=== PATIENT | male | born 1950 | race Caucasian/White ===

== ENCOUNTER 2020-10-29 08:56 | Emergency (ER) | payer MEDICARE, MEDICAID, SELFPAY ==
--- NOTE | 2020-10-29 09:10 | ED.GENADULT ---
HPI - General Adult General Chief complaint: Nausea/Vomiting/Diarrhea Stated complaint: Nausea/Chills/Loss of Appetite Time Seen by Provider: 10/29/20 09:22 Source: patient and RN notes reviewed Mode of arrival: ambulatory Limitations: no limitations History of Present Illness HPI narrative: 70-year-old male presents with complaints of body aches, diarrhea, decrease appetite, vomiting, nausea, and intermittent chills for the past 2 days. Saqib reports having 2 episodes of emesis on 10/28/2020 without blood or abdominal pain. Nausea intermittently. No treatment. No abdominal cramping. Exacerbating factors consist of eating and drinking. LBM diarrhea on 10/28/2020 stool without blood. Denies fever. Denies headache, dizziness, back pain, dysuria, and blood in stool. Tolerating po intake well. Remains active. The patient reports he have not been diagnosed with COVID-19. The patient reports he is not waiting for the results of a COVID-19 lab test. The patient reports he do not have weakness or fatigue. The patient reports he do not have a new or worsening cough or shortness of breath. Denies chest pain. The patient reports he do not have any rhinorrhea, congestion, loss of taste or smell, or sore throat. Denies recent traveling. Denies concerns for COVID-19 or exposures been home with limited outdoor exposure except for essential household needs and return home. At this time, patient is not suspected of having COVID-19. Some parts of this dictation were generated by voice recognition software and may contain typographical and/or grammatical inaccuracies. Related Data Home Medications Medication Instructions Recorded Confirmed aspirin 81 mg PO DAILY 10/29/20 11/01/20 citalopram 20 mg PO DAILY 10/29/20 11/01/20 folic acid 1 mg PO DAILY 10/29/20 11/01/20 lisinopril 40 mg PO DAILY 10/29/20 11/01/20 metformin 500 mg PO BID 10/29/20 11/01/20 methocarbamol 500 mg PO HS 10/29/20 11/01/20 omeprazole 20 mg PO DAILY 10/29/20 11/01/20 amlodipine 2.5 mg PO DAILY 11/01/20 11/01/20 atorvastatin 40 mg PO DAILY 11/01/20 11/01/20 cholecalciferol (vitamin D3) 25 mcg PO DAILY 11/01/20 11/01/20 [Vitamin D3] clonidine HCl 0.2 mg PO TID 11/01/20 11/01/20 furosemide 20 mg PO DAILY 11/01/20 11/01/20 gabapentin 300 mg PO HS 11/01/20 11/01/20 metoprolol tartrate 25 mg PO BID 11/01/20 11/01/20 olanzapine 5 mg PO DAILY 11/01/20 11/01/20 tamsulosin 0.4 mg PO DAILY 11/01/20 11/01/20 tramadol 50 mg PO BID PRN 11/01/20 11/01/20 Allergies Allergy/AdvReac Type Severity Reaction Status Date / Time No Known Allergies Allergy Verified 11/01/20 19:06 Review of Systems Review of Systems: Narrative: CONSTITUTIONAL: Denies fever, sweats. Complains of body aches, intermittent chills. EYES: Denies visual changes, redness, discharge. ENT: Denies rhinorrhea, congestion, sore throat, otalgia. CARDIOVASCULAR: Denies chest pain, palpitations, edema. RESPIRATORY: Denies dyspnea, wheezing, cough. GASTROINTESTINAL: Denies abdominal pain, vomiting. Complains of diarrhea, nausea, and decrease appetite. GENITOURINARY: Denies dysuria, hematuria, abnormal discharge. SKIN: Denies rash or itching. MUSCULOSKELETAL: Denies acute back pain, joint pain, or myalgia. NEUROLOGIC: Denies numbness or focal weakness. PSYCHIATRIC: Denies anxiety or depression. All systems reviewed & are unremarkable except as noted in HPI and below. [facility] Past Medical History Medical History Benign prostatic hyperplasia Carotid arterial disease Status post left carotid endarterectomy. Chronic obstructive pulmonary disease Coronary artery disease (~09/2009) History of non STEMI and stent to circumflex. Dyslipidemia Gastroesophageal reflux disease Hypertension Non-STEMI (non-ST elevated myocardial infarction) (~09/2009) Status post stent to the mid circumflex. Schizophrenia Type 2 diabetes mellitus Surgical History Surgical Histo
[2020-10-29 09:20] VITALS: BP 144/81; PULSE 85; RESP 18; TEMP 36.8; O2SAT 98
[2020-10-29] MEDS: ONDANSETRON HCL ODT 4 MG TABLET PO (09:56)
== END 2020-10-29 10:05 | disposition home or self-care (01) ==
PROVIDERS: Emergency Provider Nurse Practitioner Family
DX: K52.9 Noninfective gastroenteritis and colitis, unspecified (principal); Z20.822 Contact with and (suspected) exposure to COVID-19; J44.9 Chronic obstructive pulmonary disease, unspecified; I25.10 Atherosclerotic heart disease of native coronary artery without angina pectoris; E11.9 Type 2 diabetes mellitus without complications; E78.00 Pure hypercholesterolemia, unspecified; I10 Essential (primary) hypertension; I25.2 Old myocardial infarction
CPT/HCPCS: 87426; 87804; 99213; A9270; C9803; G0463

== ENCOUNTER 2020-11-01 12:18 | Inpatient (IN) | payer MEDICARE, MEDICAID, SELFPAY ==
[2020-11-01] VITALS (12 sets, daily range): BP systolic 79–158; BP diastolic 67–89; PULSE 77–93; RESP 16–20; TEMP 36.2–37.1; O2SAT 92–100; BMI 25.2
--- NOTE | ~2020-11-01 | US_ITS ---
EXAMINATION: US retroperitoneal limited DATE: 11/02/2020 13:39 INDICATION: Renal failure TECHNIQUE: Multiple grayscale and Doppler ultrasound images of the kidneys were obtained. COMPARISON: CT, 01/18/2018 FINDINGS: The right kidney measures 12.1 x 4.8 x 7.7 cm. There is a 9 mm x 7 mm hypoechoic lesion in the right mid kidney. The left kidney measures 11.9 x 5.7 x 6.3 cm. The kidneys demonstrate normal pa renchymal echogenicity. There is no hydronephrosis. The bladder is normal. IMPRESSION: 1. No sonographic correlate for the patient's symptoms. 2. 9 mm hypoechoic lesion of the right mid kidney. Recommend follow-up CT or MRI without and with con trast in six months. Reviewed, dictated and finalized at location A. CH ENGINEER IMPRESSION: 1. No sonographic correlate for the patient's symptoms. 2. 9 mm hypoechoic lesion of the right mid kidney. Recommend follow-up CT or MR I without and with contrast in six months.
--- NOTE | ~2020-11-01 | XR_ITS ---
EXAMINATION: XR chest 1V portable DATE: 11/01/2020 14:17 INDICATION: Acute chest pain. TECHNIQUE: A single frontal view of the chest was obtained on 2 radiographs. COMPARISON: Chest 2 views 11/05/2016 FINDINGS: There are interstitial and patchy airspace opacities in all lung zones bilaterally. No pleu ral effusion or pneumothorax. The heart size is normal. IMPRESSION: 1. Diffuse lung disease, consistent with pneumonia (especially COVID-19 pneumonia) versus pulmonary e mitchel. Reviewed, dictated and finalized at location A. TRICAL MACHINIST IMPRESSION: 1. Diffuse lung disease, consistent with pneumonia (especially COVID-19 pneumon ia) versus pulmonary edema.
--- NOTE | ~2020-11-01 | CT_ITS ---
EXAMINATION: CT brain wo con EXAM DATE: 11/01/2020 12:48 INDICATION: Weakness. Infarct. TECHNIQUE: Spiral CT of the head was performed without contrast. Axial, coronal and sagittal images were reviewed. The dose-length product (DLP) for this examination was 681.00 mGy-cm. The exposure w as tailored according to patient size, and iterative reconstruction (ASIR) was used as additional dos e reduction technique. There is no prior study for comparison. FINDINGS: There is age indeterminate punctate right thalamic infarction. Small to moderate-sized righ t cerebellar infarction, most likely chronic. There is punctate old left caudate infarction. Mild jean roangiopathy and cerebral atrophy. No obstructive hydrocephalus, acute intracranial hemorrhage, mass or extra-axial collections. Probable left vertex scalp contusion. IMPRESSION: 1. Age-indeterminate right thalamic infarction. 2. 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 3. Mild age-related findings. 4. Probable left vertex scalp contusion. Reviewed, dictated and finalized at location A. RIAL HANDLER 1ST SHIFT
--- NOTE | ~2020-11-01 | US_ITS ---
EXAMINATION: US carotid duplex BI EXAM DATE: 11/02/2020 13:39 INDICATION: Stroke on CT, hx CEA cva and renal failure. TECHNIQUE: Grayscale, color and pulsed Doppler images of the cervical carotid arteries were obtained . The degree of vessel stenosis is placed in one of the following categories: normal, <50% stenosis, 50-69% stenosis, >=70% stenosis but less than near-occlusion, near-occlusion, or occlusion. Note that percent stenosis relative to normal distal artery lumen diameter is indirectly measured from velocit y measurements as described by Andre, et al. Radiology 2003; 229:340-346. There is no prior study fo r comparison. FINDINGS: RIGHT SIDE: Right common carotid artery peak systolic velocity (PSV in cm/s): 80 Right bulb/internal carotid artery peak systolic velocity (PSV in cm/s): 88 Right internal carotid artery end diastolic velocity (EDV in cm/s): 30 Right ICA/CCA peak systolic ratio: 1.1 Right external carotid artery peak systolic velocity (PSV in cm/s): 56 Right vertebral artery antegrade flow: yes There is mild scattered carotid plaque. Velocity and Doppler waveforms in the common and internal carotid arteries is normal. LEFT SIDE: Left common carotid artery peak systolic velocity (PSV in cm/s): Occluded Left bulb/internal carotid artery peak systolic velocity (PSV in cm/s): Occluded Left vertebral artery antegrade flow: yes IMPRESSION: 1. Less than 50 percent stenosis in the right internal carotid artery. 2. Occluded left internal carotid artery. > Reviewed, dictated and finalized at location A. SKIVER
--- NOTE | ~2020-11-01 | CT_ITS ---
EXAMINATION: CTA chest PE protocol EXAM DATE: 11/01/2020 15:49 INDICATION: Midsternal chest pain, acute onset. Low blood pressure. Weight loss and weakness. TECHNIQUE: Spiral CTA of the chest (pulmonary arteries) was performed with 100 cc Omnipaque 350 intr avenous contrast injection. Images were acquired during the pulmonary arterial phase. Coronal maxi mum intensity projection 3D-reconstructions were created by the technologist on dedicated workstation . Axial, coronal and sagittal reformatted images were reviewed. The dose-length product (DLP) for t his examination was 736.78 mGy-cm. The exposure was tailored according to patient size (auto mA exp osure control), and iterative reconstruction (ASIR) was used as additional dose reduction technique. Correlation is made to chest x-ray earlier same day. FINDINGS: Pulmonary arteries are well opacified and without intraluminal filling defects. No thora cic aortic dissection. Moderate amount of bilateral groundglass airspace disease, right side slightl y more involved. Most likely acute infectious process, less likely edema. This is superimposed on mod erate emphysema. No confluent consolidation. There are no pleural or pericardial effusions. Trache obronchial tree is patent. Mildly enlarged mediastinal lymph nodes likely reactive. There is no pn eumothorax. Heart normal in size. There is mild to moderate coronary arterial calcification, evie rial sclerosis. Upper abdomen is unremarkable. There is moderate thoracic spondylosis without oste oblastic or osteolytic lesions identified. IMPRESSION: 1. Moderate amount of groundglass airspace disease likely acute infection, less likely edema or chrome polisher ion process. 2. Mild mediastinal lymphadenopathy likely reactive. 3. Moderate emphysema. 4. No pulmonary emboli. Reviewed, dictated and finalized at location A. ONNEL GENERALIST MANAGER IMPRESSION: 1. Moderate amount of groundglass airspace disease likely acute infection, les s likely edema or chronic process. 2. Mild mediastinal lymphadenopathy likely reactive. 3. Moderate emphysema. 4. No pulmonary emboli.
--- NOTE | 2020-11-01 12:36 | ED.WEAKNESS ---
HPI - Weakness General Chief complaint: Weakness Stated complaint: low blood pressure, dizzy, weakness Time Seen by Provider: 11/01/20 12:26 Source: patient Mode of arrival: ambulatory Limitations: no limitations History of Present Illness HPI Narrative: Patient is a 70-year-old male brought in due to generalized weakness and low blood pressure. Patient states that he is on 5 blood pressure medications, his blood pressure over the past week has been running in the 80s over 40s to 90s over 60s. Patient states that he had chest discomfort, brief, which she states only lasted for minutes and now resolved. Patient denies any speech or visual disturbance, focal weakness or numbness, shortness of breath, abdominal pain, nausea, vomiting, diarrhea, fever or chills. Patient does admit to nausea vomiting a few days ago but only lasted for a day and has since been resolved. Related Data Home Medications Medication Instructions Recorded Confirmed aripiprazole 30 mg PO DAILY 10/29/20 10/29/20 aspirin 81 mg PO DAILY 10/29/20 10/29/20 atorvastatin 80 mg PO DAILY 10/29/20 10/29/20 benztropine 1 mg PO DAILY 10/29/20 10/29/20 cefadroxil 500 mg PO BID 10/29/20 10/29/20 citalopram 20 mg PO DAILY 10/29/20 10/29/20 folic acid 1 mg PO DAILY 10/29/20 10/29/20 lisinopril 40 mg PO DAILY 10/29/20 10/29/20 metformin 500 mg PO BID 10/29/20 10/29/20 methocarbamol 500 mg PO HS 10/29/20 10/29/20 metoprolol tartrate 50 mg PO Q12H 10/29/20 10/29/20 omeprazole 20 mg PO BID 10/29/20 10/29/20 ranitidine HCl 150 mg PO DAILY 10/29/20 10/29/20 amlodipine 2.5 mg PO DAILY 11/01/20 11/01/20 clonidine HCl 0.2 mg PO TID 11/01/20 11/01/20 furosemide 20 mg PO DAILY 11/01/20 11/01/20 gabapentin 300 mg PO HS 11/01/20 11/01/20 olanzapine 5 mg PO DAILY 11/01/20 11/01/20 tamsulosin 0.4 mg PO DAILY 11/01/20 11/01/20 tramadol 50 mg PO BID PRN 11/01/20 11/01/20 Allergies Allergy/AdvReac Type Severity Reaction Status Date / Time No Known Allergies Allergy Verified 11/01/20 12:36 Review of Systems Review of Systems: All systems reviewed & are unremarkable except as noted in HPI and below Constitutional: Constitutional: Denies body ache(s), Denies chills, Denies excessive sweating, Denies fatigue, Denies fever(s), Denies headache(s), Denies lethargy, Denies malaise and Denies weight loss Eyes: Eyes: Denies blurry vision, Denies change in vision and Denies loss of vision ENT: Denies dizziness, Denies ear discharge, Denies headache(s), Denies lip swelling, Denies epistaxis, Denies nasal congestion, Denies neck pain, Denies throat swelling and Denies tongue swelling Cardiovascular: Cardiovascular: Denies chest pain, Denies chest pain at rest, Denies chest pain with activity, Denies diaphoresis, Denies rapid heart rate, Denies edema, Denies irregular heart rhythm, Denies lightheadedness, Denies palpitations, Denies dyspnea and Denies dyspnea on exertion Respiratory: Respiratory: Denies chest congestion, Denies cough, Denies hemoptysis, Denies dyspnea and Denies dyspnea on exertion Gastrointestinal: Gastrointestinal: Denies abdominal pain, Denies melena, Denies hematochezia, Denies diarrhea, Denies nausea, Denies vomiting and Denies hematemesis Musculoskeletal: Musculoskeletal: Denies abnormal gait, Denies deformity, Denies joint swelling, Denies limited range of motion, Denies neck pain and Denies numbness Neurologic: Denies Abnormal speech present, Denies abnormal gait, Denies confusion, Denies dizziness, Denies headache(s), Denies focal weakness, Denies loss of vision, Denies numbness, Denies Other visual disturbances and Denies Sensory deficit (Neuro) Psychiatric: Psychiatric: Denies confusion, Denies depression, Denies auditory hallucinations, Denies homicidal ideation and Denies suicidal ideation Endocrine: Endocrine: Denies cold intolerance, Denies excessive sweating, Denies fatigue, Denies heat intolerance and Denies palpitations Hematologic/Lymphatic: Hematologic/Lymphatic: D
[2020-11-01] MEDS: LACTATED RINGERS 1,000 ML 999 ML IV CONT (13:10)
[2020-11-01 13:17] LABS: Glucose Point of Care 134 (65-105)
[2020-11-01 13:19] LABS: Basophils Percent Auto 0.1 % (0.2-1.2); Eosinophils Percent Auto 0.1 % (0-4.4); Hematocrit 41.7 % (42.0-52.0); Immature Granulocyte Absolute 0.07 K/mm3 (0.00-0.031); Immature Granulocyte Percent A 0.5 % (0-0.5); Lymphocytes Absolute Auto 0.81 K/mm3 (0.9-3.2); Lymphocytes Percent Auto 5.2 % (18.3-44.2); Mean Corpuscular Hemoglobin 31.1 pg (26-34); Mean Corpuscular Volume 86.3 fl (80-100); Monocytes Absolute Auto 0.8 K/mm3 (0.1-0.6); Monocytes Percent Auto 5.3 % (2.6-8.5); Neutrophils Absolute Auto 13.7 K/mm3 (1.3-6.7); Neutrophils Percent Auto 88.8 % (45.5-73.1); Platelet Count Result 229 k/mm3 (150-375); Red Blood Count 4.83 M/mm3 (4.6-6.20); White Blood Count 15.5 K/mm3 (4.5-10.0)
[2020-11-01 13:30] LABS: Lactic Acid Reflex 1.9 mmol/L (0.7-2.1)
[2020-11-01 13:36] LABS: Alanine Aminotransferase 11 U/L (4-50); Albumin Level 3.5 g/dL (3.5-5.1); Alkaline Phosphatase 89 U/L (38-126); Anion Gap 4 mmol/L (8-16); Aspartate Amino Transferase 22 U/L (17-59); Bilirubin,Total 0.8 mg/dL (0.2-1.3); Blood Urea Nitrogen 15 mg/dL (9-20); Calcium 8.8 mg/dL (8.4-10.2); Carbon Dioxide 27 mmol/L (22-30); Chloride 82 mmol/L (98-107); Estimated CRCL calculation 54 ml/min; Estimated Glomerular Filt Rate 60; Glucose 127 mg/dL (75-110); Potassium 4.2 mmol/L (3.4-5.0); Sodium 113 mmol/L (137-145)
[2020-11-01 13:38] LABS: Partial Thromboplastin Time 33.3 SECONDS (22.3-36.8)
[2020-11-01 13:38] LABS: Add Urine Microscopic? NO; Appearance Urine Clear (Clear); Bilirubin Urine Negative (Negative); Blood Urine Negative (Negative); Color Urine Straw (Yellow); Glucose Urine UA Negative (Negative); Ketones Urine Negative (Negative); Leukocyte Esterase Ur Negative LEU/UL (Negative); Nitrate Urine Negative (Negative); Protein Urine Negative (Negative); RBC Urine 0-2 /hpf (0-2); Specific Grav Ur 1.006 (1.001-1.035); Urobilinogen Urine Negative mg/dL (<2.0); WBC Urine 0-3 /hpf
[2020-11-01 13:39] LABS: Prothrombin Time 14.2 Seconds (11.1-14.7)
[2020-11-01 13:48] LABS: Troponin I 0.125 ng/mL (0.000-0.034)
--- NOTE | 2020-11-01 14:19 | ECG_ITS ---
Measurements Intervals [place] Rate: 81 P: 73 RI: 180 QRS: 49 QRSD: 94 T: 78 QT: 344 QTc: 401 Interpretive Statements SINUS RHYTHM ATRIAL PREMATURE COMPLEX BORDERLINE R WAVE PROGRESSION, ANTERIOR LEADS ST ELEVATION IN ANTEROLATERAL LEADS- CONSIDER INJURY, PERICARDITIS, OR EARLY REPOLARIZATION BASELINE ARTIFACT- I, III, AVR, AVL, AVF, V2 ABNORMAL ECG Electronically Signed On 11-01-2020 16:25:38 STEREOPTICIAN by Zackery Terrell D.O.
[2020-11-01] MEDS: ASPIRIN 81 MG CHEWABLE TABLET 324 MG PO (14:41)
[2020-11-01] MEDS: ENOXAPARIN 100 MG/ML SYRINGE 90 MG SUB-Q (15:04)
--- NOTE | 2020-11-01 15:19 | PM.CNCAR ---
Assessment and Plan Additional Plan 70-year-old man with: Abnormal looking EKG and modestly elevated troponin but with no clinical evidence or symptoms to suggest an acute coronary syndrome is going on. He is in the emergency room principally because of concerns regarding problematic/symptomatic hypotension. His antihypertensive regimen includes amlodipine, clonidine, metoprolol and lisinopril. It is likely some of his medications need to be reduced and or withdrawn. At this point I do not believe Mr. lanette diaz needs to be brought emergently to the cardiac solder making laborer for an angiogram based on no clinical complaints that would suggest an acute FL is going on. We will follow him with you while he is in the hospital but at this point I will defer to the primary team regarding adjusting his blood pressure medications. Edgar Bello MD [facility] History of Present Illness History of Present Illness Consult date/time: 11/01/20 15:20 Consult reason: hypotension Reason For Visit: low blood pressure, dizzy, weakness Narrative: This is a 70-year-old man I am seeing in the emergency room at the [facility] of the ED staff because they were concerned about the possibility of a ST-elevation FL. The patient is in the emergency room brought in by his sister who apparently is his power of deputy county attorney as well because of concerns regarding weakness unsteadiness of his gait concerned that he might fall because of problematic/symptomatic hypotension. This is a gentleman who apparently gets his medical care at the [facility] and she has been concerned that his systolic blood pressure at times is in the 80s he lives alone is at home home and is having difficulty being lightheaded when he stands up and tries to ambulate in the home and this has been attributed to hypotension. She states that the she brought him to an urgent care center and had him evaluated earlier this week with no adjustments being made in his medication. He normally gets his [facility] care at the [facility] but for some reason they are not taking him back to the [facility] for evaluation of this. In the emergency department the patient's electrocardiogram shows some elevation of the ST segments in the precordial leads there is no reciprocal depression. The patient states that he is not experiencing any chest pain recently that he can recall. A troponin level was done that is elevated at 0.1 and for this reason the ER doctor was concerned that there might be an ST-elevation FL going on. Once again he is not having any symptoms or complaints that would suggest this. According to the sister he does have a history of coronary disease having had a coronary stent procedure done here at [facility] about 10 years ago. He has not been followed by Cardiology at all since that procedure for reasons that are not clear. He does follow-up with a primary care physician as well as a psychiatrist at the [facility]. According to his sister his other ongoing medical problems include longstanding hypertension chronic lung disease with ongoing cigarette smoking and a history of schizophrenia. The patient is relatively comfortable in the emergency room at this time he just finished urinating he is sitting at the bedside and the ER cart and offers no other complaints again on repeated questioning he is not having any chest pain. Review of Systems Constitutional: Constitutional: Reports lethargy Eyes: Eyes: Reports no additional eye complaints ENT: Reports system reviewed and no additional complaints, except as documented Cardiovascular: Cardiovascular: Reports no additional cardiovascular complaints Respiratory: Respiratory: Reports wheezing Gastrointestinal: Gastrointestinal: Reports no additional gastrointestinal complaints Musculoskeletal: Musculoskeletal: Reports no additional musculoskeletal complaints Integumentary/Breasts: Skin/Breast: Reports system reviewed and no additional complaints, except as docu Neurolo
--- NOTE | 2020-11-01 17:00 | PM.IMHP ---
H&P: HPI History of Present Illness Date/Time: 11/01/20 17:00 Chief Complaint: Weakness and low blood pressure. Narrative: This is a 70-year-old male with coronary artery disease status post stent to the mid circumflex in 2009, type 2 diabetes mellitus, hypertension, hyperlipidemia, COPD, and schizophrenia who presented to the emergency department earlier today via private vehicle from home for evaluation of weakness and low blood pressures. He has a fair historian but is somewhat vague regarding what ails him but from what I can gather he has not felt well for about 5 days with symptoms to include generalized malaise, weakness, body aches, decreased appetite, nausea, vomiting, loose stools, chills, and lightheadedness upon standing. He also reports losing 30 pounds unintentionally although his sister feels it is more like 60 pounds. He was seen at [facility] on 10/29/2020 and was diagnosed with gastroenteritis, testing negative for both COVID-19 and influenza. Vomiting and loose stools have since abated however he continues to have nausea with a poor appetite and lightheadedness. He has been monitoring his blood pressures daily and notes they have been running between 80/40 and 90/60 which is quite a bit lower than his baseline. In fact he an appointment with his doctor at the [place] today but did not wish to be transferred to the [place] and came to [place] instead. In any regard, he was noted to be coughing frequently while I was in the room and he goes on to admit that he has a chronic smoker's cough which is a bit occasionally productive of clear phlegm, and this has been unchanged. Chest x-ray does show findings of bilateral pneumonia, however. Additionally he was found to have profound hyponatremia with a sodium of 113; no other labs are in the chart for comparison unfortunately. He drinks maybe 3 bottled peraza a day in addition to a 6 pack of diet Pepsi, may be a bit less than that since he has not been feeling well. He has not been eating much due to ongoing nausea. No confusion or abdominal pain. Urine output has been unremarkable. No new medications or change in dosing. No history of malignancy or thyroid disease. He has not had a documented fever. No sinus congestion, otalgia, or odynophagia. He denies significant shortness of breath and chest pain. Review of Systems Review of Systems: Narrative: Twelve systems were reviewed with pertinent positives and negatives as per HPI. Patient reports generalized weakness and denies focal weakness however he seems weak in the left upper extremity but he says he has a difficult time lifting that arm due to pain in the shoulder. He has not injured himself but has had increasing problems with shoulder pain recently, maybe in the last month or so. He denies vertigo, auditory and visual changes, and paresthesias. No chest pain, pleuritic pain, or palpitations. Denies dysuria and hematuria. No dysphagia or concerns for aspiration. Except as documented, all other systems were reviewed and are negative. [facility] Past Medical History Medical History Benign prostatic hyperplasia Carotid arterial disease Status post left carotid endarterectomy. Chronic obstructive pulmonary disease Coronary artery disease (~09/2009) History of non STEMI and stent to circumflex. Dyslipidemia Gastroesophageal reflux disease Hypertension Non-STEMI (non-ST elevated myocardial infarction) (~09/2009) Status post stent to the mid circumflex. Schizophrenia Type 2 diabetes mellitus Surgical History Surgical History History of cardiac catheterization (~09/2009) Status post stent in the mid circumflex. History of left-sided carotid endarterectomy (~03/2000) Family History Family History Other Unknown family medical history Social History Social Histor
[2020-11-01 17:07] LABS: Troponin I 0.139 ng/mL (0.000-0.034)
[2020-11-01 17:47] LABS: Anion Gap 6 mmol/L (8-16); Blood Urea Nitrogen 14 mg/dL (9-20); Calcium 9.1 mg/dL (8.4-10.2); Carbon Dioxide 27 mmol/L (22-30); Chloride 82 mmol/L (98-107); Estimated CRCL calculation 65 ml/min; Estimated Glomerular Filt Rate > 60; Glucose 131 mg/dL (75-110); Potassium 4.1 mmol/L (3.4-5.0); Sodium 115 mmol/L (137-145)
[2020-11-01 18:00] LABS: CRP 13.8 mg/dL (<1.0)
[2020-11-01 18:07] LABS: Lactate Dehydrogenase < 200 U/L (313-618)
[2020-11-01 18:09] LABS: Glucose Point of Care 155 (65-105)
[2020-11-01] MEDS: SODIUM CHLORIDE 0.9% IV 1,000 ML 75 ML IV CONT (18:46)
--- NOTE | 2020-11-01 18:51 | ADMGEN ---
This patient, Saqib Alaniz, was admitted to IMU Room 209-01. Patient/family oriented to hospital policies and general routines including ID bracelet, bed and alarms, visiting hours, pain management, procedures, bathroom and other care routines, personal items, smoking policy, room service/diet, and visiting hours. Information on how to activate the Rapid Response Team has been discussed. Patient/Family are encouraged to report perceived risks to care and to ask questions if they do not understand what they are told or what they should do.
[2020-11-01 20:03] LABS: Sodium 119 mmol/L (137-145)
[2020-11-01 20:21] LABS: Troponin I 0.134 ng/mL (0.000-0.034)
[2020-11-01 20:58] LABS: Sodium Urine Random 21 meq/L
[2020-11-01 21:00] LABS: Creatinine Urine 15.9 mg/dL
[2020-11-01 21:29] LABS: Glucose Point of Care 194 (65-105)
--- NOTE | 2020-11-01 21:32 | PM.CNNEP ---
Assessment and Plan Assessment and plan (1) Hyponatremia: Code(s): E87.1 - Hypo-osmolality and hyponatremia Status: Acute Assessment and Plan: Saqib has hyponatremia. The patient looks like he could be a little bit dehydrated. The patient is also on multiple medicines that could lead to dehydration as well including Lasix and the citalopram. I am assuming he took his medications this morning before he came in so I would not think that withdrawal of the medicines would be making him correct too quickly at this point. The patient also is not eating very well for the last couple of weeks and so could have an mild form of beer drinkers potomania, drinking lots of fluid but not eating very many osmoles thus reducing his free water excretory ability such that he is able to easily overwhelm his kidneys'capability of clearing the free water he drinks. This would explain his high urine output right now and his rapid correction of sodium since he is not drinking very much fluid right now. The patient could have other issues as well. He does have COPD which could bring about SIADH. He could have some underlying cancer because he is a smoker. This may be a combination of SIADH and beer drinkers potomania. His sodium corrected by 6 within about 6 hours. He is at risk of over-correction. So at this point I am going given some DDAVP. Will stop his IV fluids. I will encourage him to go eat and drink water and follow the sodium closely overnight. If it still corrects to quickly we can give him some D5W. [facility] get serum and urine osmolality, TSH and cortisol levels, and a serum protein electrophoresis. (2) Pneumonia: Qualifiers: Laterality: unspecified laterality Lung location: unspecified part of lung Pneumonia type: due to unspecified organism Qualified Code(s): J18.9 - Pneumonia, unspecified organism Code(s): J18.9 - Pneumonia, unspecified organism Status: Acute Assessment and Plan: The patient has pneumonia on his chest x-ray. Possibly this is why he sick. He is getting antibiotics. (3) COVID-19 ruled out by laboratory testing: Code(s): Z20.822 - Contact with and (suspected) exposure to COVID-19 Status: Acute Assessment and Plan: He is tested for COVID because of the pneumonia. He is on isolation (4) Hypertension: Code(s): I10 - Essential (primary) hypertension Status: Acute Assessment and Plan: His blood pressure is under good control (5) Type 2 diabetes mellitus: Code(s): E11.9 - Type 2 diabetes mellitus without complications Status: Chronic Assessment and Plan: He is on Accu-Cheks and sliding-scale insulin History of Present Illness Reason for Consult Consult date: 11/01/20 Chief Complaint Chief complaint: Nstemi, Pneumonia, Hyponatremia History of Present Illness Narrative: Saqib is a very pleasant 70-year-old gentleman who has multiple medical problems including COPD, coronary artery disease status post myocardial infarction, hypertension, diabetes, hyperlipidemia, schizophrenia. The patient says he has been sick for a couple of weeks with occasional nausea and vomiting and also occasional diarrhea. He has not been eating very well the last couple of weeks. Says he drinks fluid. About 3 bottles of water and about 6 cans of 7 up per day. He has continued this fluid intake and spite of not eating very much. He does not drink alcohol. He says he takes Advil a couple times per day. He does not take any other pain medicine. He does take furosemide. He is also on psychiatric agents such as citalopram, and olanzapine. He has most of his care at the [facility]. He saw about a week ago who lucinda some blood work and told him that his sodium was low but did not give him any advice to correct it. Looking further back in the record, during hospital stay here in 2009 he did have a mildly low sodium for couple of days but i
[2020-11-01] MEDS: DESMOPRESSIN ACETATE 4 MCG/ML AMP 2 MCG IV PUSH (22:27)
[2020-11-01 23:02] LABS: Sodium 119 mmol/L (137-145)
[2020-11-02] VITALS (16 sets, daily range): BP systolic 113–168; BP diastolic 62–96; PULSE 71–107; RESP 15–18; TEMP 36.1–36.8; O2SAT 93–100
[2020-11-02] MEDS: METOPROLOL TARTRATE 25 MG TABLET PO ×3 (00:10→21:50)
[2020-11-02] MEDS: cloNIDine HCL 0.2 MG TABLET PO ×4 (00:10→17:52)
[2020-11-02] MEDS: methocarbamoL 500 MG TABLET PO ×2 (00:10→21:51)
[2020-11-02] MEDS: GABAPENTIN 300 MG CAPSULE PO ×2 (00:10→21:51)
[2020-11-02] MEDS: traMADol HCL (*CRX) 50 MG TABLET PO (01:22)
[2020-11-02 04:04] LABS: Sodium 120 mmol/L (137-145)
[2020-11-02] MEDS: NICOTINE (*PBKC) 21 MG PATCH 1 PATCH TRANSDERM (04:27)
[2020-11-02 05:05] LABS: Creatinine Urine 56.1 mg/dL; Total Protein Urine Random 49 mg/dL; Ur Ttl Prot Creatinine Ratio 0.87 mg/mg (0-0.20)
[2020-11-02 05:07] LABS: Sodium Urine Random 87 meq/L
[2020-11-02 08:27] LABS: SARS-CoV-2 RNA PCR Negative
[2020-11-02] MEDS: FOLIC ACID 1 MG TABLET PO (08:38)
[2020-11-02] MEDS: ATORVASTATIN 40 MG TABLET PO (08:38)
[2020-11-02] MEDS: ASPIRIN 81 MG ENTERIC TABLET PO (08:38)
[2020-11-02] MEDS: CHOLECALCIFEROL 1,000 UNITS TABLET 1000 UNITS PO (08:39)
[2020-11-02] MEDS: PANTOPRAZOLE SOD SESQUIHYDRATE 20 MG TAB PO (08:39)
[2020-11-02] MEDS: amLODIPine BESYLATE 2.5 MG TABLET PO (08:39)
[2020-11-02] MEDS: TAMSULOSIN HCL 0.4 MG CAPSULE PO (08:39)
[2020-11-02 08:40] LABS: Sodium 119 mmol/L (137-145)
[2020-11-02 09:19] LABS: Glucose Point of Care 129 (65-105)
--- NOTE | 2020-11-02 09:39 | PM.IMPN ---
Progress Note: A&P Assessment and Plan (1) Hypertension: Code(s): I10 - Essential (primary) hypertension Status: Acute (2) Type 2 diabetes mellitus: Code(s): E11.9 - Type 2 diabetes mellitus without complications Status: Chronic (3) Generalized weakness: Code(s): R53.1 - Weakness Status: Acute (4) Abnormal brain CT: Code(s): R90.89 - Other abnormal findings on diagnostic imaging of central nervous system Status: Acute (5) Elevated troponin: Code(s): R77.8 - Other specified abnormalities of plasma proteins Status: Acute (6) Hyponatremia: Code(s): E87.1 - Hypo-osmolality and hyponatremia Status: Acute (7) Bilateral pneumonia: Code(s): J18.9 - Pneumonia, unspecified organism Status: Acute (8) Non-ST elevation (NSTEMI) myocardial infarction: Code(s): I21.4 - Non-ST elevation (NSTEMI) myocardial infarction Status: Acute (9) Acute hyponatremia: Code(s): E87.1 - Hypo-osmolality and hyponatremia Status: Acute (10) Acute hypotension: Code(s): I95.9 - Hypotension, unspecified Status: Acute (11) Pneumonia: Qualifiers: Laterality: unspecified laterality Lung location: unspecified part of lung Pneumonia type: due to unspecified organism Qualified Code(s): J18.9 - Pneumonia, unspecified organism Code(s): J18.9 - Pneumonia, unspecified organism Status: Acute (12) COVID-19 ruled out by laboratory testing: Code(s): Z20.822 - Contact with and (suspected) exposure to COVID-19 Status: Acute Additional Plan HPI: This is a 70-year-old male with coronary artery disease status post stent to the mid circumflex in 2009, type 2 diabetes mellitus, hypertension, hyperlipidemia, COPD, and schizophrenia who presented to the emergency department earlier today via private vehicle from home for evaluation of weakness and low blood pressures. He has a fair historian but is somewhat vague regarding what ails him but from what I can gather he has not felt well for about 5 days with symptoms to include generalized malaise, weakness, body aches, decreased appetite, nausea, vomiting, loose stools, chills, and lightheadedness upon standing. He also reports losing 30 pounds unintentionally although his sister feels it is more like 60 pounds. He was seen at [facility] on 10/29/2020 and was diagnosed with gastroenteritis, testing negative for both COVID-19 and influenza. Vomiting and loose stools have since abated however he continues to have nausea with a poor appetite and lightheadedness. He has been monitoring his blood pressures daily and notes they have been running between 80/40 and 90/60 which is quite a bit lower than his baseline. In fact he an appointment with his doctor [facility] the [facility] today but did not wish to be transferred to the [facility] and came to [place] instead. In any regard, he was noted to be coughing frequently while I was in the room and he goes on to admit that he has a chronic smoker's cough which is a bit occasionally productive of clear phlegm, and this has been unchanged. Chest x-ray does show findings of bilateral pneumonia, however. Additionally he was found to have profound hyponatremia with a sodium of 113; no other labs are in the chart for comparison unfortunately. He drinks maybe 3 bottled peraza a day in addition to a 6 pack of diet Pepsi, may be a bit less than that since he has not been feeling well. He has not been eating much due to ongoing nausea. No confusion or abdominal pain. Urine output has been unremarkable. No new medications or change in dosing. No history of malignancy or thyroid disease. He has not had a documented fever. No sinus congestion, otalgia, or odynophagia. He denies significant shortness of breath and chest pain. A/P # multifocal pneuomonia: COVID negative. treated as CAP with ceftraixone and azithromycin. sputum culture. legionella negative. pneucoccus pe
[2020-11-02 10:29] LABS: Hematocrit 41.3 % (42.0-52.0); Hemoglobin 14.7 g/dL (14.0-18.0); Mean Corpuscular HGB Conc 35.6 g/dl (32-36); Mean Corpuscular Hemoglobin 30.6 pg (26-34); Mean Corpuscular Volume 85.9 fl (80-100); Mean Platelet Volume 9.3 fl (7.4-10.4); Platelet Count Result 226 k/mm3 (150-375); Red Blood Count 4.81 M/mm3 (4.6-6.20); Red Cell Distribution Width 13.8 % (11.5-14.5); White Blood Count 10.8 K/mm3 (4.5-10.0)
[2020-11-02 10:42] LABS: Sodium 117 mmol/L (137-145)
--- NOTE | 2020-11-02 11:37 | PM.PNNEP ---
Progress Note: A&P Assessment and Plan (1) Hyponatremia: Code(s): E87.1 - Hypo-osmolality and hyponatremia Status: Acute Assessment and Plan: Saqib has hyponatremia. TSH and cortisol are okay. No sign of brainissues. No history of cancer. he does have pneumonia which could be contributing to this. sodium level improved rather rapidly at 1st. He was given DDAVP 2 mcg yesterday and he is not fluid restricted. His sodium level has stayed stable through this morning's blood draw. It has not yet been 24 hours since he was admitted. Most recent blood draw however shows a reduced sodium. Will fluid restrict the patient. Will check another sodium level this afternoon And have the nurses call me with the results. (2) Pneumonia: Qualifiers: Laterality: unspecified laterality Lung location: unspecified part of lung Pneumonia type: due to unspecified organism Qualified Code(s): J18.9 - Pneumonia, unspecified organism Code(s): J18.9 - Pneumonia, unspecified organism Status: Acute Assessment and Plan: The patient has pneumonia on his chest x-ray. Possibly this is why he sick. He is getting antibiotics. (3) COVID-19 ruled out by laboratory testing: Code(s): Z20.822 - Contact with and (suspected) exposure to COVID-19 Status: Acute Assessment and Plan: COVID-19 test was negative. (4) Hypertension: Code(s): I10 - Essential (primary) hypertension Status: Acute Assessment and Plan: His blood pressure is under good control (5) Type 2 diabetes mellitus: Code(s): E11.9 - Type 2 diabetes mellitus without complications Status: Chronic Assessment and Plan: He is on Accu-Cheks and sliding-scale insulin Subjective Date/time seen: 11/02/20 11:37 Interval history: Saqib is feeling better today. He is sitting up in a chair. Review of Systems Cardiovascular: Cardiovascular: Reports no additional cardiovascular complaints Respiratory: Respiratory: Reports no additional respiratory complaints Gastrointestinal: Gastrointestinal: Reports no additional gastrointestinal complaints Genitourinary: Genitourinary: Reports no additional male genitourinary complaints Exam Narrative: Exam Narrative: WDWN in NAD skin no rash Or subcu nodules head ncat lungs clear cor reg no rub or gallop abd BS+ nontender and soft ext no edema. Objective Data Vital Signs Vital Signs: Vital Signs - 24 hr 03/05/21 12:29 11/01/20 13:16 11/01/20 13:49 Temperature 37.1 C Pulse Rate 77 78 77 Respiratory Rate 20 16 20 Blood Pressure 126/77 79/67 L 140/89 Pulse Oximetry 96 100 98 11/01/20 14:53 11/01/20 16:36 11/01/20 16:45 Temperature 36.6 C 36.2 C L Pulse Rate 82 84 87 Respiratory Rate 18 16 20 Blood Pressure 146/83 H 144/87 H 158/89 H Pulse Oximetry 97 94 98 11/01/20 17:11 11/01/20 19:11 11/01/20 19:12 Temperature 36.3 C L Pulse Rate 85 90 85 Respiratory Rate 20 Blood Pressure 147/77 H Pulse Oximetry 95 11/01/20 19:35 11/01/20 20:00 11/01/20 22:00 Temperature Pulse Rate 93 93 90 Respiratory Rate Blood Pressure Pulse Oximetry 92 11/02/20 00:00 11/02/20 00:10 11/02/20 04:00 Temperature 36.2 C L Pulse Rate 94 93 82 Respiratory Rate 18 Blood Pressure 168/84 H Pulse Oximetry 97 11/02/20 04:30 11/02/20 06:00 11/02/20 08:00 Temperature 36.8 C 36.6 C Pulse Rate 84 84 97 Respiratory Rate 16 18 Blood Pressure 134/76 159/81 H Pulse Oximetry 94 93 11/02/20 08:38 Temperature Pulse Rate 88 Respiratory Rate Blood Pressure Pulse Oximetry Intake/Output Intake/Output: Intake & Output 10/30/20 10/31/20 11/01/20 11/02/20 23:59 23:59 23:59 23:59 Intake Total 1075 640 Output Total 1580 475 Balance -505 165 Meds/Results Medications: Active Medications Generic Name Dose Route Start Last Admin Trade Name Freq PRN Reason Stop Dose Adm
[2020-11-02 12:34] LABS: Glucose Point of Care 166 (65-105)
[2020-11-02 14:15] LABS: Sodium 118 mmol/L (137-145)
--- NOTE | 2020-11-02 16:51 | ECHO_ITS ---
Patient Info Name: Saqbi Alaniz Age: 70 years : 1950 Gender: Male Ht: 72 in Wt: 177 lbs BSA: 2.02 m2 HR: 78 bpm BP: 134 / 76 mmHg Heart Rhythm: Sinus Rhythm Technical Quality: Fair Exam Date: 11/02/2020 11:44 AM Exam Location: [facility] Pulmonary Patient Status: Inpatient Admit Date: 11/01/2020 Staff Ordering Physician: Lou Cummings PA-C Planting Machine Operator: Giselle Jackson RDCS Attending Provider: Félix Muller MD Referring Physician: Emiliano SKINNER; Exam Type: CA echo doppler color flow Study Info Complete two-dimensional, color flow and Doppler transthoracic echocardiogram is performed. Summary 1. Complete two-dimensional, color flow and Doppler transthoracic echocardiogram is performed. 2. There is mild concentric increased left ventricular wall thickness. 3. Left ventricular chamber dimension is normal. 4. Left ventricular systolic function is normal, estimated at 55-60%. 5. The apex is akinetic, the remainder of the LV contracts normally. 6. Left atrial chamber dimension is mildly enlarged. 7. There is mild aortic valve sclerosis. 8. The mitral valve annulus is mildly calcified. Left Ventricle Left ventricular chamber dimension is normal. Left ventricular systolic function is normal, estimated at 55-60%. There is mild concentric increased left ventricular wall thickness. The left ventricular diastolic function is grade I diastolic dysfunction. The apex is akinetic, the remainder of the LV contracts normally. Right Ventricle Right ventricular chamber dimension is normal. Left Atria Left atrial chamber dimension is mildly enlarged. Right Atria Right atrial chamber dimension is normal. Aortic Valve The aortic valve is trileaflet. There is mild aortic valve sclerosis. Pulmonic Valve The pulmonic valve is normal. Mitral Valve The mitral valve has normal leaflets. There is trace mitral valve regurgitation. The mitral valve annulus is mildly calcified. Tricuspid Valve The tricuspid valve leaflets are normal. Pericardium/Pleural The pericardium appears normal. Aorta The aortic root size at the sinus of Valsalva is normal. Left Ventricular Outflow Tract Name Value Normal LVOT 2D LVOT Diameter 2.4 cm LVOT Doppler LVOT Peak Velocity 95 cm/s LVOT Peak Gradient 2 mmHg LVOT Mean Gradient 1 mmHg LVOT VTI 16 cm LVOT VTI/AV VTI Ratio 0.7 LVOT Stroke Volume 75 ml LVOT CO 5.5 l/min LVOT CI 2.7 l/min/m2 Pulmonic Valve Name Value Normal PV Doppler PV Peak Velocity 80 cm/s PV Peak Gradient 3 mmHg Mitral Valve
[2020-11-02 17:34] LABS: Glucose Point of Care 129 (65-105)
[2020-11-02 20:27] LABS: Glucose Point of Care 130 (65-105)
[2020-11-02 20:30] LABS: Sodium 116 mmol/L (137-145)
[2020-11-02 20:46] LABS: Glucose Point of Care 129 (65-105)
[2020-11-02] MEDS: SODIUM CHLORIDE 3% 240 ML 40 ML IV CONT (23:16)
[2020-11-03] VITALS (10 sets, daily range): BP systolic 108–166; BP diastolic 63–96; PULSE 56–88; RESP 16–21; TEMP 36.1–36.7; O2SAT 94–98
[2020-11-03 06:32] LABS: Hematocrit 39.9 % (42.0-52.0); Hemoglobin 13.9 g/dL (14.0-18.0); Mean Corpuscular HGB Conc 34.8 g/dl (32-36); Mean Corpuscular Hemoglobin 30.4 pg (26-34); Mean Corpuscular Volume 87.3 fl (80-100); Platelet Count Result 178 k/mm3 (150-375); Red Blood Count 4.57 M/mm3 (4.6-6.20); White Blood Count 7.8 K/mm3 (4.5-10.0)
[2020-11-03 06:51] LABS: Alanine Aminotransferase 9 U/L (4-50); Alkaline Phosphatase 75 U/L (38-126); Anion Gap 2 mmol/L (8-16); Aspartate Amino Transferase 18 U/L (17-59); Bilirubin,Total 0.7 mg/dL (0.2-1.3); Blood Urea Nitrogen 9 mg/dL (9-20); Calcium 8.8 mg/dL (8.4-10.2); Carbon Dioxide 32 mmol/L (22-30); Chloride 86 mmol/L (98-107); Estimated CRCL calculation 90 ml/min; Estimated Glomerular Filt Rate > 60; Glucose 118 mg/dL (75-110); Phosphorus 2.5 mg/dL (2.5-4.5); Potassium 4.3 mmol/L (3.4-5.0); Sodium 120 mmol/L (137-145)
[2020-11-03 07:51] LABS: Glucose Point of Care 120 (65-105)
--- NOTE | 2020-11-03 10:24 | PM.PNNEP ---
Progress Note: A&P Assessment and Plan (1) Hyponatremia: Code(s): E87.1 - Hypo-osmolality and hyponatremia Status: Acute Assessment and Plan: Saqib has hyponatremia. This is likely due to too much water drinking in the presence of Citalopram, diuretics and renal insufficiency. Sodium corrected too quickly so he was given DDAVP. Sodium dropped a little so he was placed on fluid restriction. Sodium dropped even more so he was given 3% saline and now the sodium is up to 120. He was hallucinating yesterday and is not any more today. The DDAVP is still active I believe. I am going to give him some salt tablets and also some saline and diuretics to help get the sodium up. Eventually the DDAVP will wear off and his urine output will increase and his sodium will correct a little bit more. Will watch for this. He is currently on citalopram which is part of why his sodium level is low I think he probably needs this because of his psychiatric issues. So we will just work around this. In the long run hopefully just fluid restriction will help. Will continue fluid restriction. (2) Pneumonia: Qualifiers: Laterality: unspecified laterality Lung location: unspecified part of lung Pneumonia type: due to unspecified organism Qualified Code(s): J18.9 - Pneumonia, unspecified organism Code(s): J18.9 - Pneumonia, unspecified organism Status: Acute Assessment and Plan: The patient has pneumonia on his chest x-ray. Possibly this is why he sick. He is getting antibiotics. (3) COVID-19 ruled out by laboratory testing: Code(s): Z20.822 - Contact with and (suspected) exposure to COVID-19 Status: Acute Assessment and Plan: COVID test was negative (4) Hypertension: Code(s): I10 - Essential (primary) hypertension Status: Acute Assessment and Plan: His blood pressure is under good control (5) Type 2 diabetes mellitus: Code(s): E11.9 - Type 2 diabetes mellitus without complications Status: Chronic Assessment and Plan: He is on Accu-Cheks and sliding-scale insulin Subjective Date/time seen: 11/03/20 10:24 Interval history: Saqib is feeling better today. Lying in bed eating breakfast. Nurse says that he was hallucinating yesterday but not today. Exam Narrative: Exam Narrative: WDWN in NAD skin no rash Or subcu nodules head ncat lungs clear cor reg no rub or gallop abd BS+ nontender and soft ext 1+ edema. Objective Data Vital Signs Vital Signs: Vital Signs - 24 hr 11/02/20 12:00 11/02/20 14:00 11/02/20 16:00 Temperature 36.3 C L 36.7 C Pulse Rate 78 78 83 Respiratory Rate 18 16 Blood Pressure 113/75 140/96 H Pulse Oximetry 100 96 11/02/20 18:00 11/02/20 19:50 11/02/20 20:00 Temperature 36.1 C L Pulse Rate 86 78 74 Respiratory Rate 15 Blood Pressure 119/62 Pulse Oximetry 96 11/02/20 21:50 11/02/20 23:24 11/03/20 00:00 Temperature 36.1 C L Pulse Rate 78 71 56 L Respiratory Rate 18 Blood Pressure 136/68 Pulse Oximetry 98 11/03/20 02:00 11/03/20 03:44 11/03/20 04:00 Temperature 36.1 C L Pulse Rate 74 75 66 Respiratory Rate 18 Blood Pressure 154/88 H Pulse Oximetry 98 11/03/20 06:00 11/03/20 08:33 Temperature 36.1 C L Pulse Rate 66 75 Respiratory Rate 21 H Blood Pressure 166/96 H Pulse Oximetry 98 Intake/Output Intake/Output: Intake & Output 10/31/20 11/01/20 11/02/20 11/03/20 23:59 23:59 23:59 23:59 Intake Total 1075 1900 680 Output Total 1580 475 825 Balance -505 1425 -145 Meds/Results Medications: Active Medications Generic Name Dose Route Start Last Admin Trade Name Freq PRN Reason Stop Dose Admin Albuterol 2 puff 11/01/20 16:52 Albuterol Sulfate (*Sp) Aerosol 1 Puff INHALATION QIDRT PRN Shortness Of Breath Amlodipine Besylate 2.5 mg 11/02/20 09:00 11/02/20 08:39 Amlodipine Besylate 2.5 Mg Tablet PO
[2020-11-03] MEDS: SODIUM CHLORIDE 1 GM TABLET PO ×3 (10:25→17:21)
[2020-11-03] MEDS: amLODIPine BESYLATE 2.5 MG TABLET PO (10:26)
[2020-11-03] MEDS: ENOXAPARIN 40 MG/0.4 ML SYRINGE SUB-Q (10:26)
[2020-11-03] MEDS: METOPROLOL TARTRATE 25 MG TABLET PO ×2 (10:26→20:17)
[2020-11-03] MEDS: PANTOPRAZOLE SOD SESQUIHYDRATE 20 MG TAB PO (10:26)
[2020-11-03] MEDS: ASPIRIN 81 MG ENTERIC TABLET PO (10:27)
[2020-11-03] MEDS: CHOLECALCIFEROL 1,000 UNITS TABLET 1000 UNITS PO (10:27)
[2020-11-03] MEDS: ATORVASTATIN 40 MG TABLET PO (10:27)
[2020-11-03] MEDS: cloNIDine HCL 0.2 MG TABLET PO ×3 (10:27→17:21)
[2020-11-03] MEDS: FOLIC ACID 1 MG TABLET PO (10:28)
[2020-11-03] MEDS: TAMSULOSIN HCL 0.4 MG CAPSULE PO (10:28)
[2020-11-03] MEDS: NICOTINE (*PBKC) 21 MG PATCH 1 PATCH TRANSDERM (10:28)
[2020-11-03] MEDS: traMADol HCL (*CRX) 50 MG TABLET PO (10:29)
--- NOTE | 2020-11-03 10:38 | P.PNIM_ITS ---
Progress Note: A&P Assessment and Plan (1) Hypertension: Code(s): I10 - Essential (primary) hypertension Status: Acute (2) Type 2 diabetes mellitus: Code(s): E11.9 - Type 2 diabetes mellitus without complications Status: Chronic (3) Generalized weakness: Code(s): R53.1 - Weakness Status: Acute (4) Abnormal brain CT: Code(s): R90.89 - Other abnormal findings on diagnostic imaging of central nervous system Status: Acute (5) Elevated troponin: Code(s): R77.8 - Other specified abnormalities of plasma proteins Status: Acute (6) Hyponatremia: Code(s): E87.1 - Hypo-osmolality and hyponatremia Status: Acute (7) Bilateral pneumonia: Code(s): J18.9 - Pneumonia, unspecified organism Status: Acute (8) Non-ST elevation (NSTEMI) myocardial infarction: Code(s): I21.4 - Non-ST elevation (NSTEMI) myocardial infarction Status: Acute (9) Acute hyponatremia: Code(s): E87.1 - Hypo-osmolality and hyponatremia Status: Acute (10) Acute hypotension: Code(s): I95.9 - Hypotension, unspecified Status: Acute (11) Pneumonia: Qualifiers: Laterality: unspecified laterality Lung location: unspecified part of lung Pneumonia type: due to unspecified organism Qualified Code(s): J18.9 - Pneumonia, unspecified organism Code(s): J18.9 - Pneumonia, unspecified organism Status: Acute (12) COVID-19 ruled out by laboratory testing: Code(s): Z20.822 - Contact with and (suspected) exposure to COVID-19 Status: Acute Additional Plan HPI: This is a 70-year-old male with coronary artery disease status post stent to the mid circumflex in 2009, type 2 diabetes mellitus, hypertension, hyperlipidemia, COPD, and schizophrenia who presented to the emergency department earlier today via private vehicle from home for evaluation of weakness and low blood pressures. He has a fair historian but is somewhat vague regarding what ails him but from what I can gather he has not felt well for about 5 days with symptoms to include generalized malaise, weakness, body aches, decreased appetite, nausea, vomiting, loose stools, chills, and lightheadedness upon standing. He also reports losing 30 pounds unintentionally although his sister feels it is more like 60 pounds. He was seen at [facility] on 10/29/2020 and was diagnosed with gastroenteritis, testing negative for both COVID-19 and influenza. Vomiting and loose stools have since abated however he continues to have nausea with a poor appetite and lightheadedness. He has been monitoring his blood pressures daily and notes they have been running between 80/40 and 90/60 which is quite a bit lower than his baseline. In fact he an appointment with his doctor at the [facility] today but did not wish to be transferred to the [place] and came to [place] instead. In any regard, he was noted to be coughing frequently while I was in the room and he goes on to admit that he has a chronic smoker's cough which is a bit occasionally productive of clear phlegm, and this has been unchanged. Chest x-ray does show findings of bilateral pneumonia, however. Additionally he was found to have profound hyponatremia with a sodium of 113; no other labs are in the chart for comparison unfortunately. He drinks maybe 3 bottled peraza a day in addition to a 6 pack of diet Pepsi, may be a bit less than that since he has not been feeling well. He has not been eating much due to ongoing nausea. No confusion or abdominal pain. Urine output has been unremarkable. No new medications or change in dosing. No history of malignancy or thyro
--- NOTE | 2020-11-03 11:53 | PC.NURSE ---
Patient to room 346 via hospital wheelchair. Patient oriented to room and policies. Belongings with patient.
[2020-11-03] MEDS: SODIUM CHLORIDE 0.9% IV 1,000 ML 75 ML IV CONT (11:58)
--- NOTE | 2020-11-03 12:02 | PC.NURSE ---
This patient, Saqib Alaniz, was transferred to [facility] on 11/03/20 at 1150. Personal belongings sent with patient. Report given to Nicki RN. Appropriate documentation sent with patient.
[2020-11-03 12:22] LABS: Glucose Point of Care 178 (65-105)
[2020-11-03 17:12] LABS: Sodium 120 mmol/L (137-145)
[2020-11-03] MEDS: FUROSEMIDE 10 MG TABLET PO (17:21)
[2020-11-03 17:25] LABS: Glucose Point of Care 111 (65-105)
--- NOTE | 2020-11-03 18:47 | PC.NURSE ---
After two attempts to regain IV access I called charge nurse Natalia to see if she could get access and she was also unsuccessful. Made a call to perennial house manager who is aware and will pass along to telemarketer supervisor to obtain IV access for patient.
[2020-11-03] MEDS: GABAPENTIN 300 MG CAPSULE PO (20:18)
[2020-11-03] MEDS: methocarbamoL 500 MG TABLET PO (20:18)
[2020-11-03 21:48] LABS: Glucose Point of Care 162 (65-105)
[2020-11-04] VITALS (9 sets, daily range): BP systolic 125–148; BP diastolic 63–83; PULSE 62–84; RESP 16–18; TEMP 36.1–36.6; O2SAT 91–100; BMI 25.0
[2020-11-04] MEDS: SODIUM CHLORIDE 0.9% IV 1,000 ML 75 ML IV CONT ×2 (02:59→16:19)
[2020-11-04 05:23] LABS: Basophils Percent Auto 0.3 % (0.2-1.2); Eosinophils Absolute Auto 0.1 K/mm3 (0-0.3); Hematocrit 38.5 % (42.0-52.0); Hemoglobin 13.6 g/dL (14.0-18.0); Immature Granulocyte Absolute 0.02 K/mm3 (0.00-0.031); Immature Granulocyte Percent A 0.3 % (0-0.5); Lymphocytes Absolute Auto 0.99 K/mm3 (0.9-3.2); Lymphocytes Percent Auto 15.8 % (18.3-44.2); Mean Corpuscular HGB Conc 35.3 g/dl (32-36); Mean Corpuscular Hemoglobin 30.6 pg (26-34); Mean Corpuscular Volume 86.7 fl (80-100); Monocytes Absolute Auto 0.5 K/mm3 (0.1-0.6); Monocytes Percent Auto 7.2 % (2.6-8.5); Neutrophils Absolute Auto 4.7 K/mm3 (1.3-6.7); Neutrophils Percent Auto 75.4 % (45.5-73.1); Platelet Count Result 213 k/mm3 (150-375); Red Blood Count 4.44 M/mm3 (4.6-6.20); Red Cell Distribution Width 14.1 % (11.5-14.5); White Blood Count 6.3 K/mm3 (4.5-10.0)
[2020-11-04 05:34] LABS: Albumin Level 2.9 g/dL (3.5-5.1); Anion Gap 1 mmol/L (8-16); Blood Urea Nitrogen 8 mg/dL (9-20); Calcium 8.7 mg/dL (8.4-10.2); Carbon Dioxide 31 mmol/L (22-30); Chloride 93 mmol/L (98-107); Estimated CRCL calculation 80 ml/min; Estimated Glomerular Filt Rate > 60; Glucose 108 mg/dL (75-110); Phosphorus 3.3 mg/dL (2.5-4.5); Potassium 3.8 mmol/L (3.4-5.0); Sodium 125 mmol/L (137-145)
[2020-11-04 07:44] LABS: Glucose Point of Care 115 (65-105)
[2020-11-04] MEDS: cloNIDine HCL 0.2 MG TABLET PO ×3 (09:01→16:54)
[2020-11-04] MEDS: CHOLECALCIFEROL 1,000 UNITS TABLET 1000 UNITS PO (09:04)
[2020-11-04] MEDS: TAMSULOSIN HCL 0.4 MG CAPSULE PO (09:04)
[2020-11-04] MEDS: PANTOPRAZOLE SOD SESQUIHYDRATE 20 MG TAB PO (09:04)
[2020-11-04] MEDS: SODIUM CHLORIDE 1 GM TABLET PO ×3 (09:04→16:54)
[2020-11-04] MEDS: FOLIC ACID 1 MG TABLET PO (09:04)
[2020-11-04] MEDS: METOPROLOL TARTRATE 25 MG TABLET PO ×2 (09:04→20:07)
[2020-11-04] MEDS: FUROSEMIDE 10 MG TABLET PO ×2 (09:04→16:54)
[2020-11-04] MEDS: ASPIRIN 81 MG ENTERIC TABLET PO (09:04)
[2020-11-04] MEDS: ENOXAPARIN 40 MG/0.4 ML SYRINGE SUB-Q (09:05)
[2020-11-04] MEDS: ATORVASTATIN 40 MG TABLET PO (09:05)
[2020-11-04] MEDS: NICOTINE (*PBKC) 21 MG PATCH 1 PATCH TRANSDERM (09:05)
[2020-11-04] MEDS: amLODIPine BESYLATE 2.5 MG TABLET PO (09:05)
[2020-11-04] MEDS: lisinopriL 20 MG TABLET 40 MG PO (09:05)
[2020-11-04 11:44] LABS: Glucose Point of Care 128 (65-105)
--- NOTE | 2020-11-04 12:32 | PCNSR ---
On 11/04/20, the student,Lisbeth Arriola, provided care and completed [facility] documentation on this patient. I have reviewed the student's documentation and agree with the findings.
--- NOTE | 2020-11-04 12:51 | WPDCDIQUERY2 ---
CDI Query Clarification Request - Elevated troponin: serial CE flat. cardiology on board. do not suspect ACS. 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 documented under A/P -Cardiology consultation, no clinical complaints that would suggest an acute UT is going on -NSTEMI,status acute, on problem list Please clarify if NSTEMI has been ruled in or ruled out.
--- NOTE | 2020-11-04 15:19 | PM.IMPN ---
Progress Note: A&P Assessment and Plan (1) Bilateral pneumonia: Code(s): J18.9 - Pneumonia, unspecified organism Status: Acute Assessment and Plan: Community-acquired pneumonia. CXR on presentation demonstrated diffuse lung disease consistent with pneumonia. CT showed moderate ground-glass airspace disease most consistent with acute infection. He is afebrile. Mild leukocytosis present on admission and has resolved. COVID negative. He had been maintaining adequate O2 sats on room air, however today has required 0.5 L due to borderline low pulse oximetry readings. Continue ceftriaxone and azithromycin. Urine Legionella and pneumococcal antigens pending Sputum culture is pending Preliminary blood cultures with no growth to date. Final cultures will be monitored. Supplemental O2 as with goal saturation 90% or above. Supportive care to include albuterol p.r.n. and expectorants. (2) Hyponatremia: Code(s): E87.1 - Hypo-osmolality and hyponatremia Status: Acute Assessment and Plan: He has a history of chronic hyponatremia which is felt to be due to excess water intake in the setting of renal insufficiency and medication use including SSRI and diuretics. Baseline sodium unknown. Patient presented with acute hyponatremia with sodium at 113. Urine sodium is 21. FENa is 1.3%. He was rehydrated with IV fluids, however sodium corrected too quickly so he received DDAVP. Sodium declined and fluid restriction diet initiated. Sodium improved with 3% saline. Sodium improved today at 125. Nephrology following and input is appreciated. Continue sodium chloride tablets Continue normal saline at 75 mL/hour Fluid restriction diet continued Continue furosemide to help increase sodium levels Citalopram can be continued given his psychiatric history, per nephrology. (3) Generalized weakness: Code(s): R53.1 - Weakness Status: Acute Assessment and Plan: Likely multifactorial related to acute hyponatremia and general physical deconditioning. He feels unsteady. TSH wnl. 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 He did not have any acute symptoms that were worrisome for acute CVA. Carotid Doppler showed <50% stenosis of right internal carotid artery and occlusion of left carotid artery. Echocardiogram with no significant valvular disease. Continue aspirin Continue high intensity statin He will need outpatient follow up for left carotid artery disease. (5) Elevated troponin: Code(s): R77.8 - Other specified abnormalities of plasma proteins Status: Acute Assessment and Plan: Troponin minimally elevated upon presentation and remained flat. He had no clinical symptoms which correlated with ACS. Echocardiogram evaluated. He was seen in consultation by cardiology and findings not felt to be due to ACS. (6) Hypertension: Code(s): I10 - Essential (primary) hypertension Status: Acute Assessment and Plan: Blood pressures had reportedly been running low prior to admission. BP in the 140s on presentation, however he had an isolated reading of 79/67 in the ER which seems erroneous. Subsequent BP readings have been fairly well controlled, mostly in the 140s. Last BP 144/82. Continue home regimen of amlodipine, clonidine, metoprolol, lisinopril, and Lasix. Monitor blood pressures closely. (7) Type 2 diabetes mellitus: Code(s): E11.9 - Type 2 diabetes mellitus without complications Status: Chronic Assessment and Plan: No prior A1c available review, however he reports goo
--- NOTE | 2020-11-04 15:40 | PM.PNNEP ---
Progress Note: A&P Assessment and Plan (1) Hyponatremia: Code(s): E87.1 - Hypo-osmolality and hyponatremia Status: Acute Assessment and Plan: likely due to excess free water intake/drinking combined with use of SSRI (citalopram) and diuretics noted fluctuating sodiums since admission requiring DDAVP and 3% saline now on salt tabs and diuretics and fluid restriction remains on citalopram given his psychiatric issues given sodium up to 125mmol/L, will back off on normal saline IVFs, salt tabs, and diuretics follow trend of sodium (2) Pneumonia: Qualifiers: Laterality: unspecified laterality Lung location: unspecified part of lung Pneumonia type: due to unspecified organism Qualified Code(s): J18.9 - Pneumonia, unspecified organism Code(s): J18.9 - Pneumonia, unspecified organism Status: Acute Assessment and Plan: as noted by admission imaging culture negative to date on antibiotics could be a contributing factor with regard to #1 (3) COVID-19 ruled out by laboratory testing: Code(s): Z20.822 - Contact with and (suspected) exposure to COVID-19 Status: Acute Assessment and Plan: COVID test was negative (4) Hypertension: Code(s): I10 - Essential (primary) hypertension Status: Chronic Assessment and Plan: well controlled at this time follow trend of hemodynamics (5) Type 2 diabetes mellitus: Code(s): E11.9 - Type 2 diabetes mellitus without complications Status: Chronic Assessment and Plan: follow accuchecks on sliding-scale insulin Will continue to follow. Subjective Date/time seen: 11/04/20 15:40 Still with some productive cough in association with fluctuating shortness of breath and wheezing; no apparent distress noted; no events overnight or earlier this AM. Exam Narrative: Exam Narrative: General: WD/WN male in NAD Heart: normal S1 and S2; no rub Lungs: clear anteriorly Abdomen: soft, nontender, nondistended, positive bowel sounds Extremities: no cyanosis or clubbing; 1+ edema Skin: warm and dry Objective Data Vital Signs Vital Signs: Vital Signs Temp Pulse Resp BP Pulse Ox 11/04/20 14:06 91 11/04/20 12:06 66 125/68 11/04/20 09:04 80 11/04/20 09:00 94 11/04/20 08:00 36.1 C L 84 18 144/82 H 100 11/04/20 06:00 148/83 H 11/03/20 20:17 60 11/03/20 19:41 36.7 C 56 L 16 108/63 94 Intake/Output Intake/Output: Intake & Output 11/01/20 11/02/20 11/03/20 11/04/20 23:59 23:59 23:59 23:59 Intake Total 1075 1900 1100 2680 Output Total 4986 730 8061 1925 Balance -505 1425 -851 755 Meds/Results Medications: Active Medications Generic Name Dose Route Start Last Admin Trade Name Freq PRN Reason Stop Dose Admin Albuterol 2 puff 11/01/20 16:52 Albuterol Sulfate (*Sp) Aerosol 1 Puff INHALATION QIDRT PRN Shortness Of Breath Amlodipine Besylate 2.5 mg 11/02/20 09:00 11/04/20 09:05 Amlodipine Besylate 2.5 Mg Tablet PO 2.5 mg DAILY J LUIS Administration Aspirin 81 mg 11/02/20 09:00 11/04/20 09:04 Aspirin 81 Mg Enteric Tablet PO 12/02/20 09:01 81 mg DAILY J LUIS Administration Atorvastatin Calcium 40 mg 11/02/20 09:00 11/04/20 09:05 Atorvastatin 40 Mg Tablet PO 40 mg DAILY J LUIS Administration Clonidine HCl 0.2 mg 11/01/20 23:00 11/04/20 16:54 Clonidine Hcl 0.2 Mg Tablet PO 0.2 mg TID J LUIS Administration Dextrose 12.5 gm 11/01/20 16:52 Dextrose 50% 25 Gm/50 Ml Syringe IV PUSH PRN PRN Hypoglycemia Protocol Enoxaparin Sodium 40 mg 11/03/20 09:00 11/04/20 09:05 Enoxaparin 40 Mg/0.4 Ml Syringe SUB-Q 40 mg DAILY J LUIS Administration Folic Acid 1 mg 11/02/20 09:00 11/04/20 09:04 Folic Acid 1 Mg Tablet PO 1 mg DAILY J LUIS Administration Furosemide 10 mg 11/03/20 17:00 11/04/20 16:54 Furosemide 10 Mg Tablet PO 10 mg BID J LUIS
--- NOTE | 2020-11-04 15:40 | P.PNNP_ITS ---
Progress Note: A&P Assessment and Plan (1) Hyponatremia: Code(s): E87.1 - Hypo-osmolality and hyponatremia Status: Acute Assessment and Plan: * likely due to excess free water intake/drinking combined with use of SSRI (citalopram) and diuretics * noted fluctuating sodiums since admission requiring DDAVP and 3% saline * now on salt tabs and diuretics and fluid restriction * remains on citalopram given his psychiatric issues * given sodium up to 125mmol/L, will back off on normal saline IVFs, salt tabs, and diuretics * follow trend of sodium (2) Pneumonia: Qualifiers: Laterality: unspecified laterality Lung location: unspecified part of lung Pneumonia type: due to unspecified organism Qualified Code(s): J18.9 - Pneumonia, unspecified organism Code(s): J18.9 - Pneumonia, unspecified organism Status: Acute Assessment and Plan: * as noted by admission imaging * culture negative to date * on antibiotics * could be a contributing factor with regard to #1 (3) COVID-19 ruled out by laboratory testing: Code(s): Z20.822 - Contact with and (suspected) exposure to COVID-19 Status: Acute Assessment and Plan: COVID test was negative (4) Hypertension: Code(s): I10 - Essential (primary) hypertension Status: Chronic Assessment and Plan: * well controlled at this time * follow trend of hemodynamics (5) Type 2 diabetes mellitus: Code(s): E11.9 - Type 2 diabetes mellitus without complications Status: Chronic Assessment and Plan: * follow accuchecks * on sliding-scale insulin Will continue to follow. Subjective Date/time seen: 11/04/20 15:40 Still with some productive cough in association with fluctuating shortness of breath and wheezing; no apparent distress noted; no events overnight or earlier this AM. Exam 2 Narrative: Exam Narrative: General: WD/WN male in NAD Heart: normal S1 and S2; no rub Lungs: clear anteriorly Abdomen: soft, nontender, nondistended, positive bowel sounds Extremities: no cyanosis or clubbing; 1+ edema Skin: warm and dry Objective Data Vital Signs Vital Signs: Vital Signs Temp Pulse Resp BP Pulse Ox 11/04/20 14:06 91 11/04/20 12:06 66 125/68 11/04/20 09:04 80 11/04/20 09:00 94 03/08/21 08:00 36.1 C L 84 18 144/82 H 100 11/04/20 06:00 148/83 H 11/03/20 20:17 60 11/03/20 19:41 36.7 C 56 L 16 108/63 94 Intake/Output Intake/Output: Intake & Output 11/01/20 11/02/20 11/03/20 11/04/20 23:59 23:59 23:59 23:59 Intake Total 1075 1900 1100 2680 Output Total 8044 687 0244 1925 Balance -505 1425 -225 755 Meds/Results Medications: Active Medications Generic Name Dose Route Start Last Admin Trade Name Freq PRN Reason Stop Dose Admin Albuterol 2 puff 11/01/20 16:52 Albuterol Sulfate (*Sp) Aerosol 1 Puff INHALATION QIDRT PRN Shortness Of Breath Amlodipine Besylate 2.5 mg 11/02/20 09:00 11/04/20 09:05 Amlodipine Besylate 2.5 Mg Tablet PO 2.5 mg DAILY J LUIS Administration Aspirin 81 mg 11/02/20 09:00 11/04/20 09:04 Aspirin 81 Mg Enteric Tablet PO 12/02/20 09:01 81 mg DAILY J LIUS Admi
[2020-11-04 16:57] LABS: Glucose Point of Care 113 (65-105)
[2020-11-04 19:06] LABS: Sodium 127 mmol/L (137-145)
[2020-11-04 19:43] LABS: Pneumococcal Antigen Urine Not Detected (Not Detected)
[2020-11-04] MEDS: GABAPENTIN 300 MG CAPSULE PO (20:07)
[2020-11-04] MEDS: methocarbamoL 500 MG TABLET PO (20:07)
[2020-11-04] MEDS: guaiFENesin 12 HR 600 MG TABCR PO (20:08)
[2020-11-04 21:47] LABS: Glucose Point of Care 139 (65-105)
[2020-11-04 23:00] LABS: Sodium 129 mmol/L (137-145)
[2020-11-05] MEDS: DEXTROSE 5% IN WATER 500 ML 250 ML IV CONT (01:16)
[2020-11-05 06:00] VITALS: BP 166/92; PULSE 75; RESP 18; TEMP 36; O2SAT 100
[2020-11-05 06:10] LABS: Hematocrit 38.4 % (42.0-52.0); Hemoglobin 13.3 g/dL (14.0-18.0); Mean Corpuscular HGB Conc 34.6 g/dl (32-36); Mean Corpuscular Hemoglobin 30.9 pg (26-34); Mean Corpuscular Volume 89.3 fl (80-100); Mean Platelet Volume 9.2 fl (7.4-10.4); Platelet Count Result 199 k/mm3 (150-375); Red Cell Distribution Width 14.6 % (11.5-14.5)
[2020-11-05 06:20] LABS: Anion Gap 3 mmol/L (8-16); Blood Urea Nitrogen 8 mg/dL (9-20); Carbon Dioxide 30 mmol/L (22-30); Chloride 98 mmol/L (98-107); Estimated CRCL calculation 90 ml/min; Estimated Glomerular Filt Rate > 60; Glucose 122 mg/dL (75-110); Potassium 3.6 mmol/L (3.4-5.0); Sodium 131 mmol/L (137-145)
[2020-11-05 07:28] LABS: Folic Acid > 20.0 ng/mL (2.76->20)
[2020-11-05 07:36] LABS: Hemoglobin A1C 6.5 % (<5.7)
[2020-11-05 07:48] LABS: Legionella pneumophila Ag Ur Not Detected (Not Detected)
[2020-11-05 08:12] LABS: Glucose Point of Care 110 (65-105)
[2020-11-05 09:50] VITALS: BP 134/75
[2020-11-05] MEDS: SODIUM CHLORIDE 1 GM TABLET PO (09:51)
[2020-11-05] MEDS: amLODIPine BESYLATE 2.5 MG TABLET PO (09:51)
[2020-11-05] MEDS: ENOXAPARIN 40 MG/0.4 ML SYRINGE SUB-Q (09:51)
[2020-11-05] MEDS: CHOLECALCIFEROL 1,000 UNITS TABLET 1000 UNITS PO (09:51)
[2020-11-05] MEDS: PANTOPRAZOLE SOD SESQUIHYDRATE 20 MG TAB PO (09:51)
[2020-11-05] MEDS: TAMSULOSIN HCL 0.4 MG CAPSULE PO (09:51)
[2020-11-05] MEDS: ATORVASTATIN 40 MG TABLET PO (09:51)
[2020-11-05] MEDS: lisinopriL 20 MG TABLET 40 MG PO (09:51)
[2020-11-05] MEDS: guaiFENesin 12 HR 600 MG TABCR PO (09:52)
[2020-11-05] MEDS: ASPIRIN 81 MG ENTERIC TABLET PO (09:52)
[2020-11-05] MEDS: NICOTINE (*PBKC) 21 MG PATCH 1 PATCH TRANSDERM (09:52)
[2020-11-05] MEDS: cloNIDine HCL 0.2 MG TABLET PO ×2 (09:52→12:40)
[2020-11-05] MEDS: FOLIC ACID 1 MG TABLET PO (09:52)
[2020-11-05 09:55] VITALS: PULSE 89
[2020-11-05] MEDS: METOPROLOL TARTRATE 25 MG TABLET PO (09:55)
[2020-11-05] MEDS: CITALOPRAM HYDROBROMIDE 20 MG TABLET PO (09:58)
--- NOTE | 2020-11-05 11:07 | P.PNNP_ITS ---
Progress Note: A&P Assessment and Plan (1) Hyponatremia: Code(s): E87.1 - Hypo-osmolality and hyponatremia Status: Acute Assessment and Plan: * likely due to excess free water intake/drinking combined with use of SSRI (citalopram) and diuretics * noted fluctuating sodiums since admission requiring DDAVP and 3% saline * was on salt tabs and diuretics along with fluid restriction * remains on citalopram given his psychiatric issues * as sodum has corrected witin goa (4 - 6mmol/24hrs), will d/c IVFs, salt tabs a nd diuretics * continue fluid restriction along * follow trend of sodium (2) Pneumonia: Qualifiers: Laterality: unspecified laterality Lung location: unspecified part of lung Pneumonia type: due to unspecified organism Qualified Code(s): J18.9 - Pneumonia, unspecified organism Code(s): J18.9 - Pneumonia, unspecified organism Status: Acute Assessment and Plan: * as noted by admission imaging * culture negative to date * on antibiotics * could be a contributing factor with regard to #1 (3) COVID-19 ruled out by laboratory testing: Code(s): Z20.822 - Contact with and (suspected) exposure to COVID-19 Status: Acute Assessment and Plan: COVID test was negative (4) Hypertension: Code(s): I10 - Essential (primary) hypertension Status: Chronic Assessment and Plan: * well controlled at this time * follow trend of hemodynamics (5) Type 2 diabetes mellitus: Code(s): E11.9 - Type 2 diabetes mellitus without complications Status: Chronic Assessment and Plan: * follow accuchecks * on sliding-scale insulin Will continue to follow - not opposed to discharge today; would d/c on 1500cc fluid restriction and stop lasix and salt tabs for simplicity. Subjective Date/time seen: 11/05/20 11:07 Appears to be doing quite well this AM; no issues or problems to report at this time; no apparent distress; no events overnight or earlier this AM; anxious for discharge. Exam Narrative: Exam Narrative: General: WD/WN male in NAD Heart: normal S1 and S2; no rub Lungs: clear anteriorly Abdomen: soft, nontender, nondistended, positive bowel sounds Extremities: no cyanosis or clubbing; trace edema Skin: warm and intact Objective Data Vital Signs Vital Signs: Vital Signs Temp Pulse Resp BP Pulse Ox 11/05/20 09:55 89 11/05/20 06:00 36.0 C L 75 18 166/92 H 100 11/04/20 21:49 36.6 C 62 16 125/73 96 11/04/20 20:07 70 11/04/20 16:55 126/63 11/04/20 14:06 91 11/04/20 12:06 66 125/68 Intake/Output Intake/Output: Intake & Output 11/02/20 11/03/20 11/04/20 11/05/20 23:59 23:59 23:59 23:59 Intake Total 1900 1100 3650 1120 Output Total 325 6573 0708 1999 Balance 1426 -754 925 -501 Meds/Results Medications: Active Medications Generic Name Dose Route Start Last Admin Trade Name Freq PRN Reason Stop Dose Admin Albuterol 2 puff 11/01/20 16:52 Albuterol Sulfate (*Sp) Aerosol 1 Puff INHALATION QIDRT PRN Shortness Of Breath Amlodipine Besylate 2.5 mg 11/02/20 09:00 11/05/20 09:51 Amlodipine Besylate 2.5 Mg Tablet PO 2.5 mg DAILY J LUIS Administration Aspirin 8
--- NOTE | 2020-11-05 11:07 | PM.PNNEP ---
Progress Note: A&P Assessment and Plan (1) Hyponatremia: Code(s): E87.1 - Hypo-osmolality and hyponatremia Status: Acute Assessment and Plan: likely due to excess free water intake/drinking combined with use of SSRI (citalopram) and diuretics noted fluctuating sodiums since admission requiring DDAVP and 3% saline was on salt tabs and diuretics along with fluid restriction remains on citalopram given his psychiatric issues as sodum has corrected witin goa (4 - 6mmol/24hrs), will d/c IVFs, salt tabs and diuretics continue fluid restriction along follow trend of sodium (2) Pneumonia: Qualifiers: Laterality: unspecified laterality Lung location: unspecified part of lung Pneumonia type: due to unspecified organism Qualified Code(s): J18.9 - Pneumonia, unspecified organism Code(s): J18.9 - Pneumonia, unspecified organism Status: Acute Assessment and Plan: as noted by admission imaging culture negative to date on antibiotics could be a contributing factor with regard to #1 (3) COVID-19 ruled out by laboratory testing: Code(s): Z20.822 - Contact with and (suspected) exposure to COVID-19 Status: Acute Assessment and Plan: COVID test was negative (4) Hypertension: Code(s): I10 - Essential (primary) hypertension Status: Chronic Assessment and Plan: well controlled at this time follow trend of hemodynamics (5) Type 2 diabetes mellitus: Code(s): E11.9 - Type 2 diabetes mellitus without complications Status: Chronic Assessment and Plan: follow accuchecks on sliding-scale insulin Will continue to follow - not opposed to discharge today; would d/c on 1500cc fluid restriction and stop lasix and salt tabs for simplicity. Subjective Date/time seen: 11/05/20 11:07 Appears to be doing quite well this AM; no issues or problems to report at this time; no apparent distress; no events overnight or earlier this AM; anxious for discharge. Exam Narrative: Exam Narrative: General: WD/WN male in NAD Heart: normal S1 and S2; no rub Lungs: clear anteriorly Abdomen: soft, nontender, nondistended, positive bowel sounds Extremities: no cyanosis or clubbing; trace edema Skin: warm and intact Objective Data Vital Signs Vital Signs: Vital Signs Temp Pulse Resp BP Pulse Ox 11/05/20 09:55 89 11/05/20 06:00 36.0 C L 75 18 166/92 H 100 11/04/20 21:49 36.6 C 62 16 125/73 96 11/04/20 20:07 70 11/04/20 16:55 126/63 11/04/20 14:06 91 11/04/20 12:06 66 125/68 Intake/Output Intake/Output: Intake & Output 11/02/20 11/03/20 11/04/20 11/05/20 23:59 23:59 23:59 23:59 Intake Total 1900 1100 3650 1120 Output Total 296 0912 2874 1999 Balance 1422 -528 924 -052 Meds/Results Medications: Active Medications Generic Name Dose Route Start Last Admin Trade Name Freq PRN Reason Stop Dose Admin Albuterol 2 puff 11/01/20 16:52 Albuterol Sulfate (*Sp) Aerosol 1 Puff INHALATION QIDRT PRN Shortness Of Breath Amlodipine Besylate 2.5 mg 11/02/20 09:00 11/05/20 09:51 Amlodipine Besylate 2.5 Mg Tablet PO 2.5 mg DAILY J LUIS Administration Aspirin 81 mg 11/02/20 09:00 11/05/20 09:52 Aspirin 81 Mg Enteric Tablet PO 12/02/20 09:01 81 mg DAILY J LUIS Administration Atorvastatin Calcium 40 mg 11/02/20 09:00 11/05/20 09:51 Atorvastatin 40 Mg Tablet PO 40 mg DAILY J LUIS Administration Citalopram Hydrobromide 20 mg 11/05/20 09:40 11/05/20 09:58 Citalopram Hydrobromide 20 Mg Tablet PO 20 mg DAILY J LUIS Administration Clonidine HCl 0.2 mg 11/01/20 23:00 11/05/20 09:52 Clonidine Hcl 0.2 Mg Tablet PO 0.2 mg TID J LUIS Administration Dextrose 12.5 gm 11/01/20 16:52 Dextrose 50% 25 Gm/50 Ml Syringe IV PUSH PRN PRN Hypoglycemia Protocol Enoxaparin Sodium 40 mg 11/03/20 09:00 11/05/20 09:51 Enoxaparin
[2020-11-05 12:21] LABS: Glucose Point of Care 118 (65-105)
[2020-11-05 14:00] VITALS: BP 138/67; PULSE 66; RESP 16; TEMP 36.4; O2SAT 97
--- NOTE | 2020-11-05 15:14 | PM.DS ---
DS: Admitting Diagnosis Admitting Diagnosis Admitting Diagnosis: Bilateral pneumonia, hyponatremia DS: Discharge Diagnosis Discharge Diagnosis (1) Bilateral pneumonia: Code(s): J18.9 - Pneumonia, unspecified organism Status: Acute Assessment and Plan: Community-acquired pneumonia. CXR on presentation demonstrated diffuse lung disease consistent with pneumonia. CT showed moderate ground-glass airspace disease most consistent with acute infection. He remained afebrile. Mild leukocytosis present on admission which resolved. COVID negative. Legionella and pneumococcal urinary antigens negative. He maintain adequate O2 saturations on room air. He was treated with IV ceftriaxone and will continue outpatient p.o. cefdinir to complete 7 days. He completed 5 days of azithromycin during stay. Sputum culture with no microorganisms seen. Blood cultures negative. Supportive care provided including bronchodilators and expectorants. (2) Hyponatremia: Code(s): E87.1 - Hypo-osmolality and hyponatremia Status: Acute Assessment and Plan: He has a history of chronic hyponatremia which is felt to be due to excess water intake in the setting of renal insufficiency and medication use including SSRI and diuretics. Baseline sodium unknown. Patient presented with acute hyponatremia with sodium at 113. Urine sodium is 21. FENa is 1.3%. He was seen in consultation by nephrology. He was rehydrated with IV fluids, however sodium corrected too quickly so he received DDAVP. Sodium declined and subsequently fluid restriction diet was initiated. Sodium improved with 3% saline. He was initiated on sodium chloride tablets and furosemide to help increase sodium levels. Citalopram was resumed based on his need for this medication. Sodium chloride tablets and diuretics discontinued and he will continue with a 1500 mL fluid restriction at home to maintain adequate sodium levels. Sodium was 131 at time of discharge. Repeat BMP in 1 week to monitor sodium levels. He was referred to outpatient nephrology per family request. (3) Generalized weakness: Code(s): R53.1 - Weakness Status: Acute Assessment and Plan: Likely multifactorial related to acute hyponatremia and general physical deconditioning. TSH, B12, and folate within normal limits. He was evaluated by PT/OT and did demonstrate improvement. Home health workers to come in 5 days per week who will assist him at home, as will his sister who is very supportive. Fall precautions discussed. 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 He did not have any acute symptoms that were worrisome for acute CVA. Carotid Doppler showed <50% stenosis of right internal carotid artery and occlusion of left carotid artery. Echocardiogram with no significant valvular disease. Continue aspirin and high-intensity statin. He will need outpatient follow-up for left carotid artery disease. I informed him of these findings, as well as his sister, and he will obtain outpatient follow-up promptly. (5) Elevated troponin: Code(s): R77.8 - Other specified abnormalities of plasma proteins Status: Acute Assessment and Plan: Troponin minimally elevated upon presentation and remained flat. He had no clinical symptoms which correlated with ACS. Echocardiogram evaluated. He was seen in consultation by cardiology and findings not felt to be due to ACS. (6) Hypertension: Code(s): I10 - Essential (primary) hypertension Status: Chronic Assessment and Plan: Blood pressures had reportedly been running low prior to admission. BP in the 140s on presentation, however he had a
[2020-11-05] MEDS: AZITHROMYCIN 250 MG TABLET 500 MG PO (15:42)
--- NOTE | 2020-11-05 15:53 | PC.NURSE ---
Observed patient care and reviewed documentation completed by [facility] student nurse Tae Lozano
[2020-11-05 22:36] LABS: Albumin 2.7 g/dL (3.8-4.8); Alpha 1 Globulin 0.5 g/dL (0.2-0.3); Alpha 2 Globulin 1.1 g/dL (0.5-0.9); Beta 1 Globulin 0.3 g/dL (0.4-0.6); Gamma Globulin 0.7 g/dL (0.8-1.7); Protein, Total 5.7 g/dL (6.1-8.1)
[2020-11-06 02:44] LABS: Osmolality, Urine 136 mOsm/kg (50-1200)
== END 2020-11-05 15:58 | disposition home or self-care (01) | DRG 194 ==
LOC: ANHED 14:38 → ANHIMU 15:55 → ANH3MED 11-03 11:51
PROVIDERS: Internal Medicine; Internal Medicine Nephrology; Physician Assistant; Admitting Provider Internal Medicine; Emergency Provider Emergency Medicine; Visit Provider Physician Assistant
DX: J18.9 Pneumonia, unspecified organism (principal); E87.1 Hypo-osmolality and hyponatremia; Z20.822 Contact with and (suspected) exposure to COVID-19; I10 Essential (primary) hypertension; E11.9 Type 2 diabetes mellitus without complications; J43.9 Emphysema, unspecified; F20.9 Schizophrenia, unspecified; I25.10 Atherosclerotic heart disease of native coronary artery without angina pectoris; K21.9 Gastro-esophageal reflux disease without esophagitis; N40.0 Benign prostatic hyperplasia without lower urinary tract symptoms; N28.9 Disorder of kidney and ureter, unspecified; R90.89 Other abnormal findings on diagnostic imaging of central nervous system; F17.210 Nicotine dependence, cigarettes, uncomplicated; I25.2 Old myocardial infarction; Z95.5 Presence of coronary angioplasty implant and graft
CPT/HCPCS: 36415; 70450; 71045; 71275; 76775; 80048; 80053; 80069; 81003; 82533; 82570; 82607; 82728; 82746; 82948; 83036; 83605; 83615; 83735; 83930; 83935; 84100; 84155; 84156; 84165; 84295; 84300; 84443; 84484; 85025; 85027; 85610; 85730; 86140; 87040; 87070; 87205; 87426; 87449; 87804; 87899; 93005; 93306; 93880; 96360; 97116; 97161; 97165; 99213; 99291; A9270; C9803; G0463; J0456; J0696; J1650; J2597; J7030; J7060; J7120; J7131; Q9967; U0003; U0005